=== PATIENT | female | born 2000 | race Caucasian/White ===

== ENCOUNTER 2021-10-26 11:06 | Emergency (ER) | payer MEDICAID ==
[~2021-10-26] VITALS: Ht 160 cm; Wt 68.0 kg
[2021-10-26 11:25] VITALS: BP 114/74
[2021-10-26] MEDS ORDERED: ACET-3068 PO (12:43)
[2021-10-26] MEDS ORDERED: CLIN-97 PO (12:43)
== END 2021-10-26 13:08 | disposition home or self-care (01) ==
LOC: ER 11:06
DX: K04.7 Periapical abscess without sinus (principal)
CPT/HCPCS: 99283